=== PATIENT | male | born 1940 | race Caucasian/White ===

== ENCOUNTER 2016-03-24 12:15 | Day surgery (SDC) | payer MEDICARE, BC ==
[2016-03-24 12:40] VITALS: TEMP 97.2; O2SAT 96
[2016-03-24] MEDS ORDERED: TRIAMCINOLONE ACETONIDE 40 MG/ML SUS ONE (13:18)
[2016-03-24] MEDS ORDERED: LIDOCAINE HCL 1% MPF SOL ONE (13:35)
[2016-03-24 13:55] VITALS: BP 139/72; PULSE 63; RESP 16
== END 2016-03-24 14:05 | disposition home or self-care (01) | DRG 552 ==
LOC: SURG 12:15
PROVIDERS: ATTEND Nurse Anesthetist, Certified Registered
DX: M48.06 Spinal stenosis, lumbar region (principal)
CPT/HCPCS: J2001; J3300

== ENCOUNTER 2018-10-18 08:01 | Day surgery (SDC) | payer BC ==
[~2018-10-18 08:01] MED LIST: LIDOCAINE HCL 1% MPF 30 SOL ONE; PROPOFOL 500 MG/50 ML EMU IV ONE
[2018-10-18 08:20] VITALS: RESP 16
[2018-10-18 10:24] VITALS: BP 162/82; PULSE 67; TEMP 96.9; O2SAT 97
== END 2018-10-18 10:55 | disposition home or self-care (01) | DRG 951 ==
LOC: SURG 08:01
PROVIDERS: ATTEND Surgery
DX: Z12.11 Encounter for screening for malignant neoplasm of colon (principal); K62.5 Hemorrhage of anus and rectum; K57.32 Diverticulitis of large intestine without perforation or abscess without bleeding; D50.9 Iron deficiency anemia, unspecified; K64.9 Unspecified hemorrhoids; D12.2 Benign neoplasm of ascending colon
CPT/HCPCS: J2001; J2704